=== PATIENT | female | born 1965 | race Two or more races ===

== ENCOUNTER 2020-02-08 12:24 | Emergency (ER) | payer BC ==
[~2020-02-08] VITALS: Ht 152.4 cm; Wt 55.3 kg
[~2020-02-08 12:24] MED LIST: ULTRACET PO
== END 2020-02-08 17:54 | disposition home or self-care (01) ==
LOC: ER 12:24
DX: K29.60 Other gastritis without bleeding (principal); B34.9 Viral infection, unspecified; Z03.818 Encounter for observation for suspected exposure to other biological agents ruled out